=== PATIENT | female | born 1970 ===

== ENCOUNTER 2016-06-02 16:05 | Emergency (ER) | payer OTHER ==
[~2016-06-02] VITALS: Ht 170.2 cm; Wt 122.5 kg
[2016-06-02] MEDS ORDERED: LEVOTHYROXINE125 MCG PO (16:46)
[2016-06-02] MEDS ORDERED: METFORMIN HCL500 M3 PO (16:46)
[2016-06-02] MEDS ORDERED: VITAMIN D31000 UNI1 PO (16:48)
[2016-06-02] MEDS ORDERED: VITAMIN B-121000 MC3 PO (16:48)
[2016-06-02] MEDS ORDERED: PROBIOTIC1 EACH PO (16:48)
[2016-06-02] MEDS ORDERED: ANXIETY PO (16:49)
--- NOTE | 2016-06-02 16:58 | ED UPPER/LOWER EXTREMITY COMPL ---
History of Present Illness General Chief Complaint: Lower Extremity Injury Stated Complaint: LEFT ANKLE INJURY S/P FALL Source: patient Exam Limitations: no limitations Vital Signs & Intake/Output Vital Signs & Intake/Output Vital Signs Date Time Temp Pulse Resp B/P Pulse O2 O2 Flow FiO2 Ox Delivery Rate 06/02 1616 98.6 88 20 113/75 98 Room Air Room Air Allergies Coded Allergies: No Known Allergies (06/02/16) Reconcile Medications [ANXIETY] ANXIETY (Reported) Cholecalciferol (Vitamin D3) (Vitamin D3) (Unknown Strength) CAPSULE (Unknown Dose) PO DAILY SUPPLEMENT (Reported) Cyanocobalamin (Vitamin B-12) (Unknown Strength) TABLET (Unknown Dose) PO DAILY SUPPLEMENT (Reported) Lactobacillus Acidophilus (Probiotic) 10 BILLION CELL CAPSULE 1 CAP PO DAILY PROBIOTIC (Reported) Levothyroxine Sodium 125 MCG TABLET 1 TAB PO DAILY THYROID (Reported) Metformin HCl 500 MG TABLET 1 TAB PO BID PRE-DM (Reported) Oxycodone HCl/Acetaminophen (Percocet 5-325 MG Tablet) 5 MG-325 MG TABLET 1-2 TAB PO TID PRN pain Triage Note: PT TO ED S/P SLIP ON ICE WHILE SHOVELING, TWISTED LEFT ANKLE. Triage Nurses Notes Reviewed? yes : No Patient currently breastfeeds: No HPI: 45-year-old female with moderate to severe throbbing left lateral ankle pain after an inversion injury occurred prior to arrival when she slipped on ice. No previous injuries, no treatment thus far. No other injuries from fall. (CONY NI) Past History Travel History Traveled to [place] past 21 day No Medical History Any Pertinent Medical History? 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 No (CONY NI) Review of Systems Review of Systems Constitutional: Reports: see HPI. EENTM: Reports: no symptoms. Respiratory: Reports: no symptoms. Cardiovascular: Reports: no symptoms. Gastrointestinal/Abdominal: Reports: no symptoms. Genitourinary: Reports: no symptoms. Musculoskeletal: Reports: see HPI. Skin: Reports: no symptoms. Neurological/Psychological: Reports: no symptoms. Hematologic/Endocrine: Reports: no symptoms. Immunological: Reports: no symptoms. All Other Systems: Reviewed and Negative (CONY NI) Physical Exam Physical Exam General Appearance: well developed/nourished Comments: Well-developed well-nourished no apparent distress. HEENT: Atraumatic, extraocular motion intact Neck: Supple, no lymphadenopathy Back: Nontender Respiratory: No respiratory distress Extremities: No edema, full range of motion Neuro: Alert and oriented x3 Psych: Mood affect normal, normal memory normal judgment. Skin: Warm and dry, no rash on exposed skin Left Ankle with moderate tenderness laterally. No medial tenderness. Range of motion is near full but somewhat limited due to pain. No instability is noted. Skin is intact, mild swelling and ecchymosis laterally. The foot is neurovascularly intact with sensation and motor grossly intact. There is no foot tenderness or fifth metatarsal tenderness. Able to move all toes. (CONY NI) Progress Differential Diagnosis: arterial insufficiency, cellulitis, CHF, compartment syndrome, contusion, dislocation, DVT, fracture, gout, septic arthritis, sprain, tendon injury Plan of Care: Orders Procedure Date/time Status Durable Medical Equipment 06/02 1657 Active Diagnostic Imaging: Viewed by Me: Radiology Read. Discussed w/RAD: Radiology Read. Radiology Impression: PATIENT: SARI HUTCHINS PRESENT AGE: 45 PATIENT ACCOUNT NO: [id number] : 74 LOCATION: [facility] ORDERING PHYSICIAN: CONY MARTINS SERVICE DATE: 06/02/16 EXAM TYPE: RAD - XRY-ANKLE 3 OR MORE VIEWS L EXAMINATION: XR ANKLE, LEFT CLINICAL INFORMATION: Pain. COMPARISON: None TECHNIQUE: AP, lateral, and mortise views of the left ankle. FINDINGS: Marked soft tissue swelling laterally. There is an acute obliquely oriented fracture the distal fibula extending to the ankle mortise. Minimal displacement. Ankle mortise is preserved. Bulky spurring throughout including calcaneus. IMPRESSION: Acute distal fibular fracture at the level the ankle mortise. DICTATED BY: HARLAN VIZCAINO MD DATE/TIME DICTATED:06/02/161700 VETERINARY EPIDEMIOLOGIST:CODY DATE/TIME TRANSCRIBED:06/02/161700 Comments: Patient given Percocet for pain. Will obtain x-ray for possible ankle fracture. Patient reevaluated x-ray shows distal fibula fracture. Well-padded well molded U-splint applied to the left lower extremity by myself, neurovascular intact postprocedure, Ortho-Glass splint. Crutches, nonweightbearing, elevation, ice, pain medication, orthopedic follow-up next week. (CONY NI) Departure Departure Disposition: HOME OR SELF CARE Condition: Stable Clinical Impression Primary Impression: Fracture of distal end of left fibula Qualifiers: Encounter type: initial encounter Fracture type: closed Fracture morphology: other fracture Qualified Code: S82.832A - Other fracture of upper and lower end of left fibula, initial encounter for closed fracture Referrals: ALTAF ADAIR,PIERRE Hendrix Additional Instructions: Follow-up with orthopedist next week, stay in splint, keep clean and dry, elevate as much as possible, motion and Tylenol as needed for pain, Percocet as needed for severe pain. Use crutches, nonweightbearing left leg Departure Forms: Customer Survey General Discharge Information Prescriptions: Current Visit Scripts Oxycodone HCl/Acetaminophen (Percocet 5-325 MG Tablet) 1-2 TAB PO TID PRN pain #15 TAB (CONY NI) PA/ASSISTED LIVING ASSISTANT Co-Sign Statement Statement: ED Attending supervision documentation- [] I saw and evaluated the patient. I have also reviewed all the pertinent lab results and diagnostic results. I agree with the findings and the plan of care as documented in the PA's/ASSISTED LIVING ASSISTANT's documentation. [x] I have reviewed the ED Record and agree with the PA's/ASSISTED LIVING ASSISTANT's documentation. [] Additions or exceptions (if any) to the PAs/ASSISTED LIVING ASSISTANT's note and plan are summarized below: [] (CRYSTAL BRO DO)
--- NOTE | 2016-06-02 17:07 | RADIOLOGY REPORT ---
EXAMINATION: XR ANKLE, LEFT CLINICAL INFORMATION: Pain. COMPARISON: None TECHNIQUE: AP, lateral, and mortise views of the left ankle. FINDINGS: Marked soft tissue swelling laterally. There is an acute obliquely oriented fracture the distal fibula extending to the ankle mortise. Minimal displacement. Ankle mortise is preserved. Bulky spurring throughout including calcaneus. IMPRESSION: Acute distal fibular fracture at the level the ankle mortise.
[2016-06-02] MEDS ORDERED: PERCOCET 5-3251 EACH PO (17:32)
[2016-06-02 17:45] VITALS: BP 114/70
== END 2016-06-02 17:45 ==
LOC: ERH 16:05
DX: S82.402A Unspecified fracture of shaft of left fibula, initial encounter for closed fracture (principal); X50.9XXA Other and unspecified overexertion or strenuous movements or postures, initial encounter
CPT/HCPCS: 73610-LT